=== PATIENT | female | born 1995 | race African-American/Black ===

== ENCOUNTER 2020-12-31 12:24 | Emergency (ER) | payer OTHER, SELFPAY ==
--- NOTE | ~2020-12-31 | XR_ITS ---
EXAMINATION: XR foot RT min 3V EXAM DATE: 12/31/2020 15:36 INDICATION: No known recent injury provided at this time. Pain of the right foot laterally. TECHNIQUE: Right foot dorsoplantar, lateral and oblique projections obtained and reviewed. There is no prior study for comparison. FINDINGS: Right metatarsal bones unremarkable. Small ossification located below the base of the 5th metatarsal probably chronic, but if there is point tenderness tiny acute avulsion not excludable. Th is is identified on the lateral projection. There are no bony erosions identified. There are no acute fractures or dislocations identified. There is no subcutaneous gas. The soft tissue is unremarkabl e. There are no radiopaque foreign bodies. IMPRESSION: Small ossification located inferior to base of the 5th metatarsal probably chronic in abs ence of trauma, but if there is point tenderness tiny acute avulsion not excludable. Reviewed, dictated and finalized at location B. IMPRESSION: Small ossification located inferior to base of the 5th metatarsal p robably chronic in absence of trauma, but if there is point tenderness tiny acu te avulsion not excludable.
[2020-12-31 12:36] VITALS: BP 98/64; PULSE 59; RESP 18; TEMP 36.3; O2SAT 100
[2020-12-31 16:10] VITALS: BP 102/63; PULSE 63; RESP 14; O2SAT 98
--- NOTE | 2020-12-31 16:26 | ED.GENADULT ---
HPI - General Adult General Chief complaint: Extremity Problem,Nontraumatic <BOB Clark Last Filed: 12/31/20 16:29> Stated complaint: foot pain <BOB Clark Last Filed: 12/31/20 16:29> Time Seen by Provider: 12/31/20 14:17 <BOB Clark Last Filed: 12/31/20 16:29> Source: patient and RN notes reviewed <BOB Clark Last Filed: 12/31/20 16:29> Mode of arrival: ambulatory <BOB Clark Last Filed: 12/31/20 16:29> Limitations: no limitations <BOB Clark Last Filed: 12/31/20 16:29> History of Present Illness HPI narrative: Patient is a 25-year-old female who presents with right foot pain at the base of the fifth metatarsal noting aching pain worse with weightbearing and activity patient on arrival to emergency department denies injury or trauma and states that the pain is worse with ambulation localized to the base of the fifth metatarsal only denies other complaints or injuries <BOB Clark Last Filed: 12/31/20 16:29> Related Data Allergies/adverse reactions: Allergies Allergy/AdvReac Type Severity Reaction Status Date / Time No Known Allergies Allergy Verified 12/31/20 12:38 <BOB Clark Last Filed: 12/31/20 16:29> Review of Systems Review of Systems: All systems reviewed & are unremarkable except as noted in HPI and below <BOB Clark Last Filed: 12/31/20 16:29> Exam Narrative: GENERAL: Well-appearing, well-nourished, and in no acute distress. HEAD: Normocephalic, atraumatic. EYES: PERRLA and EOMI. ENT: Nares clear, no rhinorrhea or epistaxis. Mucous membranes moist. CHEST: Clear to auscultation. No respiratory distress. No wheezes rales or rhonchi HEART: Regular rate and rhythm. No murmur heard. EXTREMITIES: Normal range of motion. No edema. Swelling and tender at the base of the fifth metatarsal no other deformities noted SKIN: Warm, dry, no rash. NEURO: No focal deficits. Alert and oriented x3. Neurovascularly intact PSYCH: Normal mood and affect. <BOB Clark Last Filed: 12/31/20 16:29> Course Course Emergency Course: Patient in the room in no distress aware of case findings treatment plan and diagnosis agreeing to follow-up as directed or to return if symptoms worsen or concerns <BOB Clark Last Filed: 12/31/20 16:29> Vital Signs Vital signs: Vital Signs Temperature 97.4 F L 12/31/20 12:36 Pulse Rate 59 L 12/31/20 12:36 Respiratory Rate 18 12/31/20 12:36 Blood Pressure 98/64 L 12/31/20 12:36 Pulse Oximetry 100 12/31/20 12:36 Temperature 97.4 F L 12/31/20 12:36 Pulse Rate 63 12/31/20 16:10 Respiratory Rate 14 12/31/20 16:10 Blood Pressure 102/63 12/31/20 16:10 Pulse Oximetry 98 12/31/20 16:10 <BOB Clark Last Filed: 12/31/20 16:29> Medical Decision Making MDM Narrative Medical decision making narrative: Patients injury or pain is consistent with musculoskeletal etiology. No signs of neurological or vascular compromise on exam. Compartments and tisues are soft without signs of compartment syndrome. Pain is felt appropriate for further evaluation on an outpatient basis. Placed in postop shoe with Johnson wrap <BOB Clark Last Filed: 12/31/20 16:29> Vital Signs Vital Signs: Vital Signs Temperature 97.4 F L 12/31/20 12:36 Pulse Rate 59 L 12/31/20 12:36 Respiratory Rate 18 12/31/20 12:36 Blood Pressure 98/64 L 12/31/20 12:36 Pulse Oximetry 100 12/31/20 12:36 Temperature 97.4 F L 12/31/20 12:36 Pulse Rate 63 12/31/20 16:10 Respiratory Rate 14 12/31/20 16:10 Blood Pressure 102/63 12/31/20 16:10 Pulse Oximetry 98 12/31/20 16:10 <BOB Clark Last Filed: 12/31/20 16:29> Imaging Data Radiologist's impression: ITS Impressions Foot X-Ray 12/31/20 15:44 IMPRESSION: Small oss
== END 2020-12-31 16:46 | disposition home or self-care (01) ==
PROVIDERS: Emergency Provider General Practice
DX: S92.351A Displaced fracture of fifth metatarsal bone, right foot, initial encounter for closed fracture (principal); X58.XXXA Exposure to other specified factors, initial encounter
CPT/HCPCS: 73630; 99283; 99284